=== PATIENT | female | born 1960 | race Caucasian/White ===

== ENCOUNTER 2017-12-07 15:39 | Emergency (ER) | payer OTHER ==
[2017-12-07] MEDS: HYDROCODONE/APAP (5/325) TAB PO (16:10)
[2017-12-07] MEDS: LIDOCAINE 1% (MDV) 10 ML INJ INFIL (16:10)
[2017-12-07] MEDS: DIPHTH/TET/ACEL PERTUSS (ADULT) 0.5 ML VIAL IM* (18:03)
[2017-12-07] MEDS: IBUPROFEN 600 MG TAB PO (18:03)
== END 2017-12-07 18:13 | disposition home or self-care (01) ==
LOC: FTE 15:39
DX: S61.216A Laceration without foreign body of right little finger without damage to nail, initial encounter (principal); W19.XXXA Unspecified fall, initial encounter; Y92.9 Unspecified place or not applicable; Z23 Encounter for immunization
CPT/HCPCS: 12002; 73130-RT; 90471; 90715; 99284-25